=== PATIENT | male | born 1980 | race Caucasian/White ===

== ENCOUNTER 2017-09-12 14:50 | Emergency (ER) | payer BC ==
[2017-09-12] MEDS ORDERED: BUPR-124 PO (15:14)
[2017-09-12] MEDS ORDERED: fentaNYL CITR 100 MCG/2 ML AMP IVP ONE (15:25)
--- NOTE | 2017-09-12 15:43 | RADIOLOGY IMAGING REPORT ---
FACILITY: [facility] - [place] PATIENT NAME: Yosef Doyle : 1980 MR: [id number] V: [id number] EXAM DATE: ORDERING PHYSICIAN: CATARINO FIGUEROA TECHNOLOGIST: Location: [facility] - [place] Patient: Yosef Doyle : 1980 Visit/Account:[id number] Date of Sevice: 09/12/2017 SHOULDER MIN 2 VIEWS LEFT Indication: Left shoulder pain after fall, snowboarding accident. Comparison: Unavailable Findings: 2 views of the left shoulder. Anterior dislocation of the humeral head is present. The humeral head shows no indication of fracture or other focal abnormality. No discrete fracture. AC joint appears intact. No bony lesions or degene rative changes. Soft tissues are unremarkable. IMPRESSION: 1. Anterior dislocation of the left humeral head. No discrete fracture is identified. Report Dictated By: Cluadio Hung at 09/12/2017 3:37 PM Report E-Signed By: Claudio Hung at 09/12/2017 3:40 PM WSN:[id number]
[2017-09-12] MEDS ORDERED: LORazepam 2 MG/ML VIAL ONE (16:11)
--- NOTE | 2017-09-12 16:40 | ER Report ---
History and Physical Time Seen By MD: 15:00 Hx. of Stated Complaint: LEFT SHOULDER INJURY WHILE SNOWBOARDING HPI/ROS CHIEF COMPLAINT: Left shoulder injury HISTORY OF PRESENT ILLNESS: Patient is a 37-year-old male accompanied by a friend, who presents to ED with complaint of left shoulder injury. He states that he fell on an outstretched arm while snowboarding. He states he is having pain in his left shoulder now. He denies any history of shoulder dislocations her previous injuries. He has not taken any medication for this. He states it happened about 2 hours ago. REVIEW OF SYSTEMS: Constitutional: No fever, no chills. Cardiovascular: No chest pain, no palpitations. Respiratory: No cough, no shortness of breath. Musculoskeletal: Left shoulder injury Skin: No rashes. Neurological: No headache. Allergies: Uncoded Allergies: SHELLFISH (Allergy, Unknown, 09/12/17) Home Meds Reported Medications Bupropion Hcl (BUPROPION XL) 150 Mg Tab.er.24h, 300 MG PO QDAY, TAB 09/12/17 Reviewed Nurses Notes: Yes Old Medical Records Reviewed: Yes Constitutional Vital Sign - Last 24 Hours 09/12/17 09/12/17 09/12/17 15:12 15:15 15:30 Temp 98.7 Pulse 92 90 Resp 16 B/P (MAP) 140/102 140/102 (115) Pulse Ox 94 93 O2 Delivery Room Air Physical Exam General Appearance: The patient is alert, has no immediate need for airway protection and no signs of toxicity. Pt appears to be in some moderate distress. Respiratory: There are no retractions, lungs are clear to auscultation. Cardiovascular: Regular rate and rhythm. Skin: Warm and dry, no rashes. Musculoskeletal: Neck is supple non tender. The left shoulder appears to be squared off. He has tenderness around the left anterior shoulder region. There is no swelling or ecchymosis identified. Minimal range of motion. Radial pulses 2+ with normal capillary refill. Normal sensation. Medical Decision Making EKG/Imaging Imaging Left Shoulder Xrays: IMPRESSION: 1. Anterior dislocation of the left humeral head. No discrete fracture is identified. Report Dictated By: Claudio Hung at 09/12/2017 3:37 PM Report E-Signed By: Claudio Hung at 09/12/2017 3:40 PM ED Course/Re-evaluation ED Course 09/12/2017 4:39:08 pm - cast x-ray results with patient it appears that he does have an anterior dislocation of his left shoulder. Patient was given 50 g of fentanyl and 2 mg of Ativan IV. The left shoulder was reduced using the external rotation technique. Procedure: Left shoulder reduction The shoulder was reduced in the usual fashion using external rotation technique without complications. Post reduction the patient's neurovascular exam is normal. Post reduction x-ray demonstrates reduction of the joint to the anatomic position. The procedure was performed by myself. Decision to Disposition Date: Sep 12, 2017 Decision to Disposition Time: 17:19 Depart Departure Latest Vital Signs Vital Signs Date Time Temp Pulse Resp B/P (MAP) Pulse Ox O2 Delivery O2 Flow Rate FiO2 09/12/17 15:30 90 93 09/12/17 15:15 140/102 (115) 09/12/17 15:12 98.7 16 Room Air Impression: Primary Impression: Dislocation of left shoulder joint Condition: Improved Disposition: HOME OR SELF-CARE Referrals: [facility] Patient Instructions: Shoulder Dislocation (ED) Additional Instructions: Stay well-hydrated. Take Tylenol or ibuprofen for pain relief as needed. Use sling as needed. Follow-up with orthopedic surgery and primary care provider in 2-3 days. If having any worsening or concerning symptoms may return the emergency Department. Problem Qualifiers Primary Impression: Dislocation of left shoulder joint Encounter type: initial encounter Qualified Codes: S43.005A - Unspecified dislocation of left shoulder joint, initial encounter CATARINO FIGUEROA PA-C Sep 12, 2017 16:40
[2017-09-12 17:29] VITALS: BP 129/81
--- NOTE | 2017-09-12 18:26 | RADIOLOGY IMAGING REPORT ---
FACILITY: [facility] - [place] PATIENT NAME: Yosef Doyle : 1980 MR: [id number] V: [id number] EXAM DATE: ORDERING PHYSICIAN: CATARINO FIGUEROA TECHNOLOGIST: Location: [facility] - [place] Patient: Yosef Doyle : 1980 Visit/Account:[id number] Date of Sevice: 09/12/2017 SHOULDER MIN 2 VIEWS LEFT Indication: Postreduction. Comparison: X-ray done earlier in the day. Findings: 3 views of the left shoulder. There is successful reduction of the previous left humeral head disloca tion. The superior lateral aspect of the humeral head does show some mild depression which could be d ue to a Hill-Sachs fracture/deformity. No other indication of fracture. No dislocation or bony lesion . Soft tissues unremarkable. IMPRESSION: 1. Successful reduction of the previous dislocation. 2. Probable Hill-Sachs deformity/fracture of the superior lateral humeral head. Report Dictated By: Claudio Hung at 09/12/2017 6:21 PM Report E-Signed By: Claudio Hung at 09/12/2017 6:23 PM WSN:[id number]
== END 2017-09-12 17:43 | disposition home or self-care (01) ==
LOC: ER 15:32
DX: S43.005A Unspecified dislocation of left shoulder joint, initial encounter (principal); Y93.23 Activity, snow (alpine) (downhill) skiing, snowboarding, sledding, tobogganing and snow tubing
CPT/HCPCS: 23650; 73030; 96374; 96375; 99283; A4565; J2060; J3010